=== PATIENT | female | born 1995 | race Two or more races ===

== ENCOUNTER 2018-01-05 18:05 | Emergency (ER) | payer SELFPAY ==
[~2018-01-05] VITALS: Ht 162.6 cm; Wt 72.6 kg
[2018-01-05 18:05] VITALS: BP 140/90
[2018-01-05] MEDS ORDERED: ZYPREXA10 MG ORAL (18:16)
--- NOTE | 2018-01-05 18:40 | Emergency Room Report ---
History of Present Illness General Chief Complaint: Behavioral Complaint Source: Patient (Diana Troy) Present Illness HPI 22-year-old female presents to emergency department brought by ambulance and accompanied by police department. He picked her up from a [facility] " for abnormal behavior and supposedly not taking her medication today. Per [employer] patient made suicidal remarks to them prompting them to place her on a hold. Patient denies SI at this time she denies HI patient is reporting that "others are trying to kill her because she "bangs" pt. denies hallucinations. pt. has poor attention span and HPI and ROS is limited. Pt. denies pain , she reports hx of hepatitis since the age of 19. (Diana Troy) Allergies: Coded Allergies: No Known Allergies (Unverified , 01/05/18) Patient History Past Medical History: see triage record Past Surgical History: none Pertinent Family History: none Last Menstrual Period: 2 weeks ago Now: No Immunizations: UTD Reviewed Nursing Documentation: PMH: Agreed; PSxH: Agreed (Diana Troy) Nursing Documentation-PMH Past Medical History: No History, Except For History Of Psychiatric Problem: Yes - Schizophrenia, Bipolar (Diana Troy) Review of Systems All Other Systems: negative except mentioned in HPI (Diana Troy) Physical Exam Vital Signs Date Time Temp Pulse Resp B/P (MAP) Pulse Ox O2 Delivery O2 Flow Rate FiO2 01/05/18 18:05 97.1 102 16 140/90 99 Room Air 97.2 Sp02 EP Interpretation: reviewed, normal General Appearance: alert, GCS 15, non-toxic, mild distress Head: normocephalic, atraumatic Eyes: bilateral eye normal inspection, bilateral eye PERRL ENT: hearing grossly normal, normal voice Neck: full range of motion Respiratory: chest non-tender, lungs clear, normal breath sounds, speaking full sentences Cardiovascular #1: regular rate, rhythm Gastrointestinal: non tender, soft Rectal: deferred Genitourinary: normal inspection, no CVA tenderness Musculoskeletal: back normal, gait/station normal, normal range of motion, non- tender Neurologic: alert, oriented x3, responsive, motor strength/tone normal, sensory intact, normal gait, speech normal, grossly normal Psychiatric: no suicidal/homicidal ideation, other - Pt. is very labile, tearful, no SI or HI, somewhat delusional as to "people trying to kill her and that her mother doesnt love her, she loves her brother more". Skin: normal color, no rash, warm/dry, well hydrated Lymphatic: no adenopathy (Diana Troy) Medical Decision Making PA Attestation Dr. Rodriguez is my supervising physician whom pt. management has been discussed with. (Diana Troy) Diagnostic Impression: Primary Impression: Behavioral disorder Additional Impression: Acute psychosis ER Course 22-year-old female presents to emergency department brought by ambulance and accompanied by police department. He picked her up from a [facility] " for abnormal behavior and supposedly not taking her medication today. Per [employer] patient made suicidal remarks to them prompting them to place her on a hold. Patient denies SI at this time she denies HI patient is reporting that "others are trying to kill her because she "bangs" pt. denies hallucinations. pt. has poor attention span and HPI and ROS is limited. Pt. denies pain , she reports hx of hepatitis since the age of 19. Pt. has rx for zyprexa that was written today from [facility] facility. Pt is hyperactive, and has a very anxious and restless affect. Ddx considered but are not limited to OD, SI/HI, psychosis, UTI, intoxication Vital signs: are WNL, pt. is afebrile H&PE are most consistent with behavioral/mental health issue- pt. is very labile , no SI/HI while here in the ED. Pt. a bit delusional - I contacted [facility] and gathered that pt. was admitted to their facility at 1: 00 am this morning and d/c'd with new Rx for zyprexa. ORDERS: -CBC, CMP: unremarkable -UA: negative for infection see results attached. -UDS: Positive for amphetamines and THC -ETOH, Salicylates and Acetaminophen - no acute intoxication. ED INTERVENTIONS: - 50mg Benadryl -2mg Ativan IM -5mg Haldol ( x 2 for a total of 10). DISPOSITION: Pt. is medically cleared for psychiatric placement Labs Test 01/05/18 18:34 White Blood Count 5.5 K/UL (4.8-10.8) Red Blood Count 4.40 M/UL (4.20-5.40) Hemoglobin 13.8 G/DL (12.0-16.0) Hematocrit 40.5 % (37.0-47.0) Mean Corpuscular Volume 92 FL (80-99) Mean Corpuscular Hemoglobin 31.4 PG (27.0-31.0) Mean Corpuscular Hemoglobin Concent 34.1 G/DL (32.0-36.0) Red Cell Distribution Width 12.1 % (11.6-14.8) Platelet Count 308 K/UL (150-450) Mean Platelet Volume 6.0 FL (6.5-10.1) Neutrophils (%) (Auto) 46.5 % (45.0-75.0) Lymphocytes (%) (Auto) 39.0 % (20.0-45.0) Monocytes (%) (Auto) 11.5 % (1.0-10.0) Eosinophils (%) (Auto) 1.3 % (0.0-3.0) Basophils (%) (Auto) 1.8 % (0.0-2.0) Sodium Level 139 MMOL/L (136-145) Potassium Level 3.7 MMOL/L (3.5-5.1) Chloride Level 103 MMOL/L (98-107) Carbon Dioxide Level 25 MMOL/L (21-32) Anion Gap 11 mmol/L (5-15) Blood Urea Nitrogen 13 mg/dL (7-18) Creatinine 0.9 MG/DL (0.55-1.30) Estimat Glomerular Filtration Rate > 60 mL/min (>60) Glucose Level 82 MG/DL (74-106) Calcium Level 9.7 MG/DL (8.5-10.1) Total Bilirubin 0.8 MG/DL (0.2-1.0) Aspartate Amino Transf (AST/SGOT) 30 U/L (15-37) Alanine Aminotransferase (ALT/SGPT) 24 U/L (12-78) Alkaline Phosphatase 62 U/L (46-116) Total Protein 8.0 G/DL (6.4-8.2) Albumin 4.1 G/DL (3.4-5.0) Globulin 3.9 g/dL Albumin/Globulin Ratio 1.1 (1.0-2.7) Salicylates Level 4.4 ug/mL (2.8-20) Urine Opiates Screen Negative (NEGATIVE) Acetaminophen Level < 2 MCG/ML (10-30) Urine Barbiturates Screen Negative (NEGATIVE) Phencyclidine (PCP) Screen Negative (NEGATIVE) Urine Amphetamines Screen Positive (NEGATIVE) Urine Benzodiazepines Screen Negative (NEGATIVE) Urine Cocaine Screen Negative (NEGATIVE) Urine Marijuana (THC) Screen Positive (NEGATIVE) Serum Alcohol < 3 mg/dL (Diana Troy) ER Course Please refer to the previous note for the history exam and presentation Patient did have multiple drug ingestion positive including cocaine Throughout the stay patient required further sedation and was also provided with Zyprexa After further medical clearance has now been accepted at a psychiatric facility And will be transferred for continuity of care Labs Test 01/05/18 18:34 White Blood Count 5.5 K/UL (4.8-10.8) Red Blood Count 4.40 M/UL (4.20-5.40) Hemoglobin 13.8 G/DL (12.0-16.0) Hematocrit 40.5 % (37.0-47.0) Mean Corpuscular Volume 92 FL (80-99) Mean Corpuscular Hemoglobin 31.4 PG (27.0-31.0) Mean Corpuscular Hemoglobin Concent 34.1 G/DL (32.0-36.0) Red Cell Distribution Width 12.1 % (11.6-14.8) Platelet Count 308 K/UL (150-450) Mean Platelet Volume 6.0 FL (6.5-10.1) Neutrophils (%) (Auto) 46.5 % (45.0-75.0) Lymphocytes (%) (Auto) 39.0 % (20.0-45.0) Monocytes (%) (Auto) 11.5 % (1.0-10.0) Eosinophils (%) (Auto) 1.3 % (0.0-3.0) Basophils (%) (Auto) 1.8 % (0.0-2.0) Sodium Level 139 MMOL/L (136-145) Potassium Level 3.7 MMOL/L (3.5-5.1) Chloride Level 103 MMOL/L (98-107) Carbon Dioxide Level 25 MMOL/L (21-32) Anion Gap 11 mmol/L (5-15) Blood Urea Nitrogen 13 mg/dL (7-18) Creatinine 0.9 MG/DL (0.55-1.30) Estimat Glomerular Filtration Rate > 60 mL/min (>60) Glucose Level 82 MG/DL (74-106) Calcium Level 9.7 MG/DL (8.5-10.1) Total Bilirubin 0.8 MG/DL (0.2-1.0) Aspartate Amino Transf (AST/SGOT) 30 U/L (15-37) Alanine Aminotransferase (ALT/SGPT) 24 U/L (12-78) Alkaline Phosphatase 62 U/L (46-116) Total Protein 8.0 G/DL (6.4-8.2) Albumin 4.1 G/DL (3.4-5.0) Globulin 3.9 g/dL Albumin/Globulin Ratio 1.1 (1.0-2.7) Salicylates Level 4.4 ug/mL (2.8-20) Urine Opiates Screen Negative (NEGATIVE) Acetaminophen Level < 2 MCG/ML (10-30) Urine Barbiturates Screen Negative (NEGATIVE) Phencyclidine (PCP) Screen Negative (NEGATIVE) Urine Amphetamines Screen Positive (NEGATIVE) Urine Benzodiazepines Screen Negative (NEGATIVE) Urine Cocaine Screen Negative (NEGATIVE) Urine Marijuana (THC) Screen Positive (NEGATIVE) Serum Alcohol < 3 mg/dL (Fernando Owusu DO) Last Vital Signs Date Time Temp Pulse Resp B/P (MAP) Pulse Ox O2 Delivery O2 Flow Rate FiO2 01/05/18 18:05 97.1 102 16 140/90 99 Room Air 97.2 (Diana Troy) Status: improved (Fernando Owusu DO) Disposition: XFER TO PSYCH HOSP/UNIT Condition: Improved Diana Troy Jan 05, 2018 18:40 Fernando Owusu DO Jan 06, 2018 04:09
[2018-01-05] MEDS ORDERED: DiphenhydrAMINE 50mg/ml Inj IM ONE (18:45)
[2018-01-05] MEDS ORDERED: Haloperidol 5mg/ml Inj IM ONE ×2 (18:45→20:30)
[2018-01-05] MEDS ORDERED: LORazepam Inj 2mg/ml 1ml IM ONE ×2 (18:45→21:45)
[2018-01-05 19:01] LABS: BASOPHILS % (AUTO) 1.8 % (0.0-2.0); EOSINOPHILS % (AUTO) 1.3 % (0.0-3.0); HEMATOCRIT 40.5 % (37.0-47.0); HEMOGLOBIN 13.8 G/DL (12.0-16.0); MEAN CORPUSCULAR VOLUME 92 FL (80-99); MONOCYTES % (AUTO) 11.5 % (1.0-10.0); NEUTROPHILS % (AUTO) 46.5 % (45.0-75.0); PLATELET COUNT 308 K/UL (150-450); RED CELL DISTRIBUTION WIDTH 12.1 % (11.6-14.8); WHITE BLOOD COUNT 5.5 K/UL (4.8-10.8)
[2018-01-05 19:11] LABS: ANION GAP 11 mmol/L (5-15); BLOOD UREA NITROGEN 13 mg/dL (7-18); CALCIUM 9.7 MG/DL (8.5-10.1); CARBON DIOXIDE 25 MMOL/L (21-32); CHLORIDE 103 MMOL/L (98-107); CREATININE 0.9 MG/DL (0.55-1.30); POTASSIUM 3.7 MMOL/L (3.5-5.1); SODIUM 139 MMOL/L (136-145)
[2018-01-05 19:16] LABS: ALANINE AMINOTRANSFERASE 24 U/L (12-78); ALBUMIN 4.1 G/DL (3.4-5.0); ALBUMIN/GLOBULIN RATIO 1.1 (1.0-2.7); ALKALINE PHOSPHATASE 62 U/L (46-116); ASPARTATE AMINO TRANSFERASE 30 U/L (15-37); BILIRUBIN,TOTAL 0.8 MG/DL (0.2-1.0)
[2018-01-06 02:05] VITALS: BP 135/91
[2018-01-06 05:15] VITALS: BP 98/65
== END 2018-01-06 05:15 ==
LOC: EDBD 18:05 → EMR 18:31
DX: F23 Brief psychotic disorder (principal)
CPT/HCPCS: 36415; 80053; 80307; 85025; 96372; 96374; 99285; G0480; J1200; J1630; J2250; 80329